=== PATIENT | male | born 1995 | race Caucasian/White ===

== ENCOUNTER 2021-12-21 22:38 | Emergency (ER) | payer MEDICAID ==
[~2021-12-21 22:38] MED LIST: HYDROCODON-ACE1 EAC4 PO
[2021-12-21 23:14] LABS: HEMOGLOBIN 14.5 gm/dl (14.0-17.5); RED BLOOD COUNT 4.8 M/UL (4.20-5.50); WHITE BLOOD COUNT 10.7 K/UL (4.5-11.0)
[2021-12-21 23:34] LABS: BUN/CREATININE RATIO 15 (0-10)
[2021-12-22] MEDS ORDERED: ONDANSETRON ODT4 MG PO (02:23)
== END 2021-12-22 02:36 | disposition home or self-care (01) ==
LOC: ER1 22:38
PROVIDERS: Nurse Practitioner
DX: R10.84 Generalized abdominal pain (principal); R10.817 Generalized abdominal tenderness; Z88.0 Allergy status to penicillin; Z88.2 Allergy status to sulfonamides; Z20.822 Contact with and (suspected) exposure to COVID-19
CPT/HCPCS: 0240U; 80053; 81001; 82150; 83690; 85025; 99284; Q9967